=== PATIENT | male | born 1950 | race Caucasian/White ===

== ENCOUNTER → 2016-11-04 | Day surgery (SDC) | payer OTHER ==
[~2016-11-04] VITALS: Ht 172.7 cm; Wt 88.5 kg
[~2016-11-04] MED LIST: ERYTHROMYCIN E3.5 G1 OPHTHALMIC; SYSTANE GEL10 GM OPHTHALMIC; ZOCOR20 MG PO
--- NOTE | ~2016-11-04 | O ---
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 PROCEDURE: Left lower lid ectropion repair with lower lid and cheek lift, full thickness skin graft from supraclavicular and temporary tarsorrhaphy. SURGEON: Lloyd Fraga M.D. CIGARETTE STAMPER: None. ANESTHESIA: General. COMPLICATIONS: None. 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 He presents today for lower lid and cheek surgery in order to attempt to preserve his ocular surface milieu and reduce his risk for loss of the eye. Informed consent was obtained to include but not limited to the potential risk for loss of vision, bleeding, infection, fair to improve the problem and the potential need for further surgery or treatment. DESCRIPTION OF PROCEDURE: The patient was taken to the operating room where general anesthesia was administered. The left lower lid, the left cheek, the left lateral canthus, the left medial canthus and the left infratemporal fossa were anesthetized with Xylocaine with epinephrine mixed with Marcaine and Wydase. The right supraclavicular area was similarly anesthetized. The patient was subsequently prepped and draped in the usual sterile fashion. A Roberto clamp was then used to clamp the left lateral canthus following which a sharp canthotomy and cantholysis was performed. The tissue was extremely scarred from his prior intervention. A short tarsal strip was prepared laterally, removing a minimal amount of lid margin. [facility] [address] [place] [address] OPERATIVE REPORT Name: ALMAS GARCÍA JULIETA Room #: REG [facility].#: [id number] Admission: 11/04/16 Attend Phys: Lloyd Fraga MD Discharge: Date of : 50 Report #: [id number] An incision was then made in the lower lid and cheek allowing the lowered and cheek tissues to be elevated. Orbital fat was exposed throughout this dissection that extended all the way up to the nasojugal fold. It did allow the tissue to be elevated, though as the lower lid and cheek was resuspended with interrupted 5-0 Prolene sutures. A temporary tarsorrhaphy was then fashioned from a short section of 5-0 Prolene and placed in the middle portion of the lid. This was then suspended from the drape superiorly. The ectropion repair was then completed as the tarsal strip was resuspended to the internal portion of the lateral orbital tubercle with two interrupted 5-0 Prolene sutures. The deficient anterior lamella was then outlined in the right supraclavicular area. Incisions were then made with a 15 blade and a full thickness skin graft harvested utilizing thin section techniques. The donor bed was then closed with interrupted buried 5-0 Vicryl sutures deep followed by 5-0 Prolene sutures superficially. It was then with Mastisol and an Op-Site. The full thickness skin graft was then defatted. It was then secured to its bed in the left lower lid and cheek with cardinal bites of 7-0 Vicryl suture followed by 6-0 plain gut suture. The eye was then dressed with erythromycin followed by stack Telfa pads followed by 2 eye pads, which were held in place with silk tape and Mastisol. The patient was subsequently transported to the recovery area having tolerated the procedures well with no anesthetic or operative complications being noted. <ELECTRONICALLY SIGNED> By: Lloyd Fraga MD 11/11/16 0611 [id number] [id number] Lloyd Fraga MD /nt
[2016-11-04 13:22] VITALS: BP 139/90
== END | disposition home or self-care (01) ==
LOC: OR 05:23
DX: H02.105 Unspecified ectropion of left lower eyelid (principal); H02.535 Eyelid retraction left lower eyelid; H02.205 Unspecified lagophthalmos left lower eyelid; H18.9 Unspecified disorder of cornea; F17.210 Nicotine dependence, cigarettes, uncomplicated; E78.00 Pure hypercholesterolemia, unspecified; Z85.828 Personal history of other malignant neoplasm of skin
CPT/HCPCS: 50010; 50101; 50386; 50398; 51636; 56527; 56528; 56531; 62110; 62900; 64037; 70005